=== PATIENT | male | born 1970 | race Caucasian/White ===

== ENCOUNTER 2017-06-05 18:30 | Emergency (ER) | payer OTHER ==
--- NOTE | 2017-06-05 18:59 | ED ---
Back Pain - HPI Summary HPI Summary: Patient presents to the ED with CC of left rib pain after a fall. Notes to SOB. Denies taking any medications. He denies ETOH, hitting his head or LOC. Otherwise healthy. Non-smoker. Never fractured ribs before. Denies back pain. Takes no medications and not on blood thinners. - History of Current Complaint Chief Complaint: EDChestWallPain Stated Complaint: POSS RIB FRACTURE Time Seen by Provider: 06/05/17 18:47 Hx Obtained From: Patient Onset/Duration: Sudden Onset Onset/Duration: Started Hours Ago Timing: Constant Back Pain Location: Is Discrete @ - left ribs Severity Initially: Moderate Severity Currently: Moderate Pain Intensity: 8 Pain Scale Used: 0-10 Numeric Aggravating Symptom(s): Lifting, Bending Alleviating Symptom(s): Rest, Position Associated Signs And Symptoms: Positive: Negative - Risk Factors AAA Risk Factors: Negative TAD Risk Factors: Negative Cauda Equina Risk Factors: Negative Epidural Abscess Risk Factors: Negative - Allergies/Home Medications Allergies/Adverse Reactions: Allergies Allergy/AdvReac Type Severity Reaction Status Date / Time Amoxicillin Allergy Severe Hives Verified 01/13/13 20:25 PMH/Surg Hx/FS Hx/Imm Hx Previously Healthy: Yes - Immunization History Hx Pertussis Vaccination: No Immunizations Up to Date: Unable to Obtain/Confirm Infectious Disease History: No Infectious Disease History: Denies: Traveled Outside the [place] in Last 30 Days - Social History Occupation: Employed Full-time Lives: With Family Alcohol Use: None Hx Substance Use: No Substance Use Type: Reports: None Hx Tobacco Use: No Smoking Status (MU): Never Smoked Tobacco Review of Systems Constitutional: Negative Negative: Fever, Chills, Fatigue Eyes: Negative Cardiovascular: Negative Positive: Shortness Of Breath Genitourinary: Negative Positive: no symptoms reported, see HPI Positive: Arthralgia - left rib pain Skin: Negative All Other Systems Reviewed And Are Negative: Yes Physical Exam Triage Information Reviewed: Yes Vital Signs On Initial Exam: Initial Vitals Temp Pulse Resp BP Pulse Ox 97.3 F 77 16 129/83 99 06/05/17 18:42 06/05/17 18:42 06/05/17 18:42 06/05/17 18:42 06/05/17 18:42 Vital Signs Reviewed: Yes Appearance: Positive: Well-Appearing, Well-Nourished Skin: Positive: Warm, Skin Color Reflects Adequate Perfusion Head/Face: Positive: Normal Head/Face Inspection Eyes: Positive: EOMI, ZINA, Conjunctiva Clear Neck: Positive: Supple, No Lymphadenopathy Respiratory/Lung Sounds: Positive: Clear to Auscultation, Breath Sounds Present Cardiovascular: Positive: RRR, Pulses are Symmetrical in both Upper and Lower Extremities Musculoskeletal: Positive: Pain @ - left sided rib Neurological: Positive: Speech Normal Psychiatric: Positive: Normal - [place] Coma Scale Coma Scale Total: 15 Diagnostics - Vital Signs Vital Signs Temp Pulse Resp BP Pulse Ox 06/05/17 18:42 97.3 F 77 16 129/83 99 - Laboratory Lab Statement: Any lab studies that have been ordered have been reviewed, and results considered in the medical decision making process. Back Pain Course/Dx - Course Course Of Treatment: Left sided rib pain after fall. SOB. Refuses medications in the ED. Xray shows no acute fracture. He is given tramadol in the ED and one to go. Rx given. Ibuprofen 600mg encouraged. spirometer given for home. Treatment options explained to patient. Patient understands the plan, voices no concerns at this time and understands the return precatuions given to them if any symptoms become worse. They are OK for discharge at this time. VS stable on discharge. - Diagnoses Provider Diagnoses: Rib contusion Discharge - Discharge Plan Condition: Stable Disposition: HOME Prescriptions: traMADol TAB* [Ultram*] 50 mg PO Q8H PRN #15 tab MDD 3 PRN Reason: Pain Patient Education Materials: Rib Contusion (ED) Referrals: Jorge Luis Galvez MD [Medical Doctor] - Additional Instructions: ibuprofen 600mg three times daily Use the tramadol up to three times daily for pain intermittently from when you take the ibuprofen Spirometer to prevent lung infections
--- NOTE | 2017-06-05 19:27 | RAD ---
INDICATION: Left rib injury. COMPARISON: There are no prior studies available for comparison. TECHNIQUE: 4 views of the left ribs and dual-energy PA views of the chest were obtained. FINDINGS: No fracture or significant focal osseous abnormality is seen. The heart is within normal limits in size. The lungs are clear. There is no evidence for pneumothorax or pleural effusion. IMPRESSION: NO EVIDENCE FOR FRACTURE.
[2017-06-05] MEDS ORDERED: traMADol TAB* 50 MG PO ONE ×2 (19:33)
[2017-06-05 19:54] VITALS: BP 118/80
== END 2017-06-05 19:53 | disposition home or self-care (01) ==
LOC: ED 18:30
DX: S20.212A Contusion of left front wall of thorax, initial encounter (principal); W19.XXXA Unspecified fall, initial encounter; Y92.9 Unspecified place or not applicable; Z88.0 Allergy status to penicillin
CPT/HCPCS: 99283; A9270-GY

== ENCOUNTER 2018-03-03 21:55 | Emergency (ER) | payer OTHER ==
[2018-03-03] MEDS ORDERED: Ciproflox/Dexameth OTIC.SUSP* 7.5 ML BTL RIGHT EAR ONE (22:47)
--- NOTE | 2018-03-03 22:49 | ED ---
Throat Pain/Nasal Congestion - HPI Summary HPI Summary: 47-year-old male presents with right ear drainage for the past couple days. Ihe had tubes placed 4 months ago. He states he had the place due to pressure issues is in his ear. He has not put any ear drops in his ear. He states he's been having a decrease in hearing with the drainage. He admits to occasional pain. Denies any sinus congestion. No sore throat. No fevers. He has never had this before. No other symptoms. - History of Current Complaint Chief Complaint: EDEarPain Time Seen by Provider: 03/03/18 22:06 - Allergies/Home Medications Allergies/Adverse Reactions: Allergies Allergy/AdvReac Type Severity Reaction Status Date / Time MS Amoxicillin [Amoxicillin] Allergy Severe Hives Verified 01/13/13 20:25 PMH/Surg Hx/FS Hx/Imm Hx Endocrine/Hematology History: Denies: Hx Anticoagulant Therapy Cardiovascular History: Denies: Hx Myocardial Infarction Infectious Disease History: No Infectious Disease History: Denies: Traveled Outside the [place] in Last 30 Days - Family History Known Family History: Positive: Hypertension - Social History Alcohol Use: None Hx Substance Use: No Substance Use Type: Reports: None Hx Tobacco Use: No Smoking Status (MU): Never Smoked Tobacco Review of Systems Negative: Fever Positive: Ear Ache Negative: Chest Pain Negative: Shortness Of Breath All Other Systems Reviewed And Are Negative: Yes Physical Exam Triage Information Reviewed: Yes Vital Signs On Initial Exam: Initial Vitals Temp Pulse Resp BP Pulse Ox 97.2 F 80 14 154/83 100 03/03/18 21:57 03/03/18 21:57 03/03/18 21:57 03/03/18 21:57 03/03/18 21:57 Vital Signs Reviewed: Yes Appearance: Positive: Well-Appearing Skin: Positive: Warm, Dry Head/Face: Positive: Normal Head/Face Inspection Eyes: Positive: Normal, Conjunctiva Clear ENT: Positive: Pharynx normal, Other - yellow discharge right ear, cleaned with q tip and tubes open Respiratory/Lung Sounds: Positive: Clear to Auscultation, Breath Sounds Present Cardiovascular: Positive: Normal, RRR Musculoskeletal: Positive: Normal Neurological: Positive: Normal Psychiatric: Positive: Normal Diagnostics - Vital Signs Vital Signs Temp Pulse Resp BP Pulse Ox 03/03/18 21:57 97.2 F 80 14 154/83 100 - Laboratory Lab Statement: Any lab studies that have been ordered have been reviewed, and results considered in the medical decision making process. EENT Course/Dx - Course Course Of Treatment: 47-year-old male presents with right ear drainage for the past couple days. Ihe had tubes placed 4 months ago. He states he had the place due to pressure issues is in his ear. He has not put any ear drops in his ear. He states he's been having a decrease in hearing with the drainage. He admits to occasional pain. Denies any sinus congestion. No sore throat. No fevers. He has never had this before. No other symptoms. On exam has yellow discharge in right ear. Cleaned with Q-tips and able to see tube is in place. Will treat with Ciprodex. Told if no improvement will have follow-up with ENT. Patient understands and agrees with plan. - Differential Diagnoses Differential Diagnoses: Otitis Externa, Otitis Media, URI/Bronchitis - Diagnoses Provider Diagnoses: Otorrhea of right ear Discharge - Sign-Out/Discharge Documenting (check all that apply): Patient Departure - Discharge Plan Condition: Good Disposition: HOME Patient Education Materials: Ear Infection (ED) Referrals: Vandana Hernandez MD [Primary Care Provider] - Jc Dominique MD [Medical Doctor] - Additional Instructions: Use 4 drops twice a day for 7 days Take Tylenol or ibuprofen for pain every 6 hours as needed Follow up with ent if no improvement Return to ED if develop any new or worsening symptoms - Billing Disposition and Condition Condition: GOOD Disposition: Home
[2018-03-03 23:05] VITALS: BP 121/74
== END 2018-03-03 23:04 | disposition home or self-care (01) ==
LOC: ED 21:55
DX: H92.11 Otorrhea, right ear (principal); Z88.0 Allergy status to penicillin
CPT/HCPCS: 99282; A9270-GY

== ENCOUNTER 2018-12-26 20:50 | Emergency (ER) | payer OTHER ==
--- NOTE | 2018-12-26 23:37 | ED ---
Adult Trauma - HPI Summary HPI Summary: Patient complains of right knee pain after mechanical fall today. Patient states he tripped and landed on his right knee. Patient is ambulatory with pain. Denies any other pain injury or symptoms. - History of Current Complaint Chief Complaint: EDExtremityLower Stated Complaint: RT KNEE INJURY PER PT Time Seen by Provider: 12/26/18 23:10 Hx Obtained From: Patient Mechanism of Injury: Fall Loss of Consciousness: no loss of consciousness Onset/Duration: Started Hours Ago Onset of Pain: Immediate Onset Severity: Moderate Current Severity: Moderate Pain Intensity: 6 Pain Scale Used: 0-10 Numeric Location: Extremities Character: Dull, Aching Aggravating Factor(s): Movement, Weight Bearing Alleviating Factor(s): Rest, Ice Associated Signs & Symptoms: Positive: Negative - Allergy/Home Medications Allergies/Adverse Reactions: Allergies Allergy/AdvReac Type Severity Reaction Status Date / Time amoxicillin Allergy Hives Verified 12/26/18 20:51 PMH/Surg Hx/FS Hx/Imm Hx Endocrine/Hematology History: Denies: Hx Anticoagulant Therapy Cardiovascular History: Denies: Hx Myocardial Infarction History: Denies: Hx Dialysis Sensory History: Denies: Hx Legally Blind EENT History: Denies: Hx Deafness Psychiatric History: Denies: Hx Autism Infectious Disease History: No Infectious Disease History: Denies: Traveled Outside the [place] in Last 30 Days - Family History Known Family History: Positive: Hypertension - Social History Alcohol Use: None Hx Substance Use: No Substance Use Type: Reports: None Hx Tobacco Use: No Smoking Status (MU): Never Smoked Tobacco Review of Systems Constitutional: Negative Eyes: Negative ENT: Negative Cardiovascular: Negative Respiratory: Negative Gastrointestinal: Negative Genitourinary: Negative Musculoskeletal: Other Skin: Negative Neurological: Negative Psychological: Normal All Other Systems Reviewed And Are Negative: Yes Physical Exam - Summary Physical Exam Summary: Mild swelling over the patellar space. No ecchymosis, erythema, extra warmth noted. Full range of motion of right knee with some mild pain. Nontender. PMS intact distally. Triage Information Reviewed: Yes Vital Signs On Initial Exam: Initial Vitals Temp Pulse Resp BP Pulse Ox 98.1 F 65 16 149/86 100 12/26/18 20:51 12/26/18 20:51 12/26/18 20:51 12/26/18 20:51 07/17/19 20:51 Vital Signs Reviewed: Yes Appearance: Positive: Well-Appearing Skin: Positive: Warm Head/Face: Positive: Normal Head/Face Inspection Eyes: Positive: Normal Neck: Positive: Supple Respiratory/Lung Sounds: Positive: Clear to Auscultation Cardiovascular: Positive: Normal Abdomen Description: Positive: Nontender Musculoskeletal: Positive: Normal Neurological: Positive: Normal Psychiatric: Positive: Normal AVPU Assessment: Alert - [place] Coma Scale Best Eye Response: 4 - Spontaneous Best Motor Response: 6 - Obeys Commands Best Verbal Response: 5 - Oriented Coma Scale Total: 15 Diagnostics - Vital Signs Vital Signs Temp Pulse Resp BP Pulse Ox 12/26/18 20:51 98.1 F 65 16 149/86 100 - Laboratory Lab Statement: Any lab studies that have been ordered have been reviewed, and results considered in the medical decision making process. Adult Trauma Course/Dx - Course Course Of Treatment: Patient complains of right knee pain after mechanical fall today. Patient states he tripped and landed on his right knee. Patient is ambulatory with pain. Denies any other pain injury or symptoms. Vital signs within normal limits. X-ray negative. Knee wrapped. Patient advised to follow -up with orthopedics if symptoms do not improve in a week. - Diagnoses Provider Diagnoses: Fall, Knee injury Discharge - Sign-Out/Discharge Documenting (check all that apply): Patient Departure Patient Received Moderate/Deep Sedation with Procedure: No - Discharge Plan Condition: Stable Disposition: HOME Patient Education Materials: Knee Pain (ED) Referrals: Vandana Hernandez MD [Primary Care Provider] - Anatoliy Mcdonald MD [Medical Doctor] - Additional Instructions: Rest, ice and ibuprofen for knee pain. Symptoms should improve over the next few days. If knee pain does not improve within a week follow-up with orthopedics Dr. Childs for further evaluation. Return to the ED for any new or worsening symptoms. - Billing Disposition and Condition Condition: STABLE Disposition: Home
[2018-12-26 23:51] VITALS: BP 133/83
== END 2018-12-26 23:50 | disposition home or self-care (01) ==
LOC: ED 20:50
DX: S89.91XA Unspecified injury of right lower leg, initial encounter (principal); W19.XXXA Unspecified fall, initial encounter; Y92.9 Unspecified place or not applicable; Z88.1 Allergy status to other antibiotic agents
CPT/HCPCS: 99282